=== PATIENT | female | born 1980 | race African-American/Black ===

== ENCOUNTER 2018-10-05 22:37 | Observation (INO) | payer MEDICAID ==
[~2018-10-05] VITALS: Ht 182.9 cm; Wt 95.3 kg
[~2018-10-05 22:37] MED LIST: FERR-43 PO; PREN-88 PO
[2018-10-05] MEDS ORDERED: CALC-1042 MT (23:34)
== END 2018-10-06 03:30 | disposition home or self-care (01) ==
LOC: 8 EST LDRP 22:37
PROVIDERS: ADMIT Obstetrics & Gynecology; ATTEND Obstetrics & Gynecology
DX: O36.8120 Decreased fetal movements, second trimester, not applicable or unspecified (principal); O09.522 Supervision of elderly multigravida, second trimester; Z3A.22 22 weeks gestation of pregnancy
CPT/HCPCS: 76805; 99281; G0378

== ENCOUNTER 2018-11-16 23:46 | Observation (INO) | payer MEDICAID ==
[~2018-11-16] VITALS: Ht 180.3 cm; Wt 97.5 kg
[~2018-11-16 23:46] MED LIST changes: +CALC-1042 MT
== END 2018-11-17 05:30 | disposition home or self-care (01) ==
LOC: 8 EST LDRP 23:46
PROVIDERS: ADMIT Obstetrics & Gynecology; ATTEND Obstetrics & Gynecology
DX: O36.8130 Decreased fetal movements, third trimester, not applicable or unspecified (principal); O26.893 Other specified pregnancy related conditions, third trimester; R10.30 Lower abdominal pain, unspecified; Z3A.28 28 weeks gestation of pregnancy
CPT/HCPCS: 76805; 99281; G0378